=== PATIENT | male | born 1960 | race Caucasian/White ===

== ENCOUNTER 2019-06-06 16:21 | Inpatient (IN) ==
[2019-06-06] MEDS ORDERED: LABETALOL 20 MG/4 ML SYRINGE IV PRN (18:16)
[2019-06-06] MEDS ORDERED: GLUCAGON 1 MG VIAL IM PRN ×2 (18:17→18:24)
[2019-06-06] MEDS ORDERED: DEXTROSE 10% 250 ML BAG IV PRN (18:17)
[2019-06-06] MEDS ORDERED: ONDANSETRON 4 MG/2 ML VIAL IV PRN (18:17)
[2019-06-06] MEDS ORDERED: DOCUSATE SODIUM 100 MG CAPSULE PO PRN (18:17)
[2019-06-06] MEDS ORDERED: ACETAMINOPHEN 325 MG TABLET PO PRN (18:17)
[2019-06-06] MEDS ORDERED: DEXTROSE 50% 25 GM/50 ML VIAL IV PRN (18:24)
[2019-06-06 19:10] LABS: Basophils % 0.4 % (0.0-0.8); Eosinophils # 0.3 10*3/uL (0.0-0.87); Hematocrit 39.2 VOL% (42.0-52.0); Hemoglobin 13.9 GM/DL (14.0-18.0); Immature Granulocytes % 0.6 %; Immature Granulocytes Absolute 0.05 #; Lymphocytes # 1.5 10*3/uL (1.4-4.0); Lymphocytes % 16.6 % (21.2-54.2); Mean Corpuscular HGB Conc 35.5 GM/DL (32-36); Mean Corpuscular Volume 86.3 FL (87-102); Mean Platelet Volume 10.3 FL (9.6-12.0); Monocytes % 8.6 % (1.7-12.7); Neutrophils % 70.8 % (38.7-73.9); Platelet Count 320 T/CUMM (130-400); Red Blood Count 4.54 MC/CUMM (3.8-5.5); Red Cell Distribution Width 11.8 % (9.3-17.3)
[2019-06-06 19:34] LABS: Albumin 3.3 G/DL (3.4-5.0); Bilirubin,Total 0.5 MG/DL (0.2-1.0); Calcium 8.9 MG/DL (8.5-10.1); Osmolality,Calculated 281.3 MOS/KG (273-304); Total Protein 7.1 G/DL (6.4-8.3)
[2019-06-06] MEDS ORDERED: MAGNESIUM SULF RIDER 2 GM in PREMIX 1 EACH IV ONE (19:52)
[2019-06-06] MEDS ORDERED: INSULIN GLARGINE 100 UNIT/ML SUBCUT SCH ×2 (21:00)
[2019-06-06 21:05] LABS: Apearance,Urine CLEAR (Clear); Bilirubin,Urine Negative (Negative); Blood, Urine Negative (Negative); Glucose,Urine (UA) 50 mg/dL (Negative); Ketones,Urine 5 mg/dL (Negative); Mucus,Urine Moderate /LPF (Occasional); Nitrite,Urine Negative (Negative); Protein,Urine 100 MG/DL; RBC,Urine 3 /HPF (0-4); Squamous Epithelial Cell,Urine Occasional /HPF (0-10); Urine Color Amber (Yellow); Urine Specific Gravity 1.031 (1.001-1.035); WBC,Urine 1 /HPF (0-6)
[2019-06-06] MEDS: MAGNESIUM OXIDE 400 MG TABLET PO SCH (22:25)
[2019-06-06] MEDS: ENOXAPARIN 40 MG/0.4 ML SYRINGE SUBCUT SCH (22:25)
[2019-06-06] MEDS: OMEGA 3 ACID ETHYL ESTERS 1 GM CAPSULE PO SCH (22:26)
[2019-06-06] MEDS: METOPROLOL TARTRATE 100 MG TABLET PO SCH (22:26)
[2019-06-06] MEDS: INSULIN REGULAR 100 UNIT/ML SUBCUT SCH (22:26)
[2019-06-07 07:21] LABS: Basophils % 0.4 % (0.0-0.8); Eosinophils # 0.2 10*3/uL (0.0-0.87); Eosinophils % 3.3 % (0.00-10.9); Hematocrit 39.8 VOL% (42.0-52.0); Hemoglobin 13.6 GM/DL (14.0-18.0); Immature Granulocytes % 0.6 %; Immature Granulocytes Absolute 0.04 #; Lymphocytes # 0.8 10*3/uL (1.4-4.0); Lymphocytes % 12.1 % (21.2-54.2); Mean Corpuscular HGB Conc 34.2 GM/DL (32-36); Mean Corpuscular Volume 89.2 FL (87-102); Mean Platelet Volume 10.4 FL (9.6-12.0); Monocytes % 7.7 % (1.7-12.7); Neutrophils % 75.9 % (38.7-73.9); Platelet Count 326 T/CUMM (130-400); Red Blood Count 4.46 MC/CUMM (3.8-5.5); Red Cell Distribution Width 11.9 % (9.3-17.3); White Blood Count 6.9 T/CUMM (4-12)
[2019-06-07 07:53] LABS: Calcium 8.8 MG/DL (8.5-10.1); Osmolality,Calculated 285.3 MOS/KG (273-304); Thyroid Stimulating Hormone 0.345 uIU/ml (0.358-3.74)
[2019-06-07] MEDS ORDERED: VENLAFAXINE XR 37.5 MG CAPSULE PO SCH (09:00)
[2019-06-07] MEDS: OMEGA 3 ACID ETHYL ESTERS 1 GM CAPSULE PO SCH ×2 (09:31→21:40)
[2019-06-07] MEDS: INSULIN REGULAR 100 UNIT/ML SUBCUT SCH ×4 (09:31→21:41)
[2019-06-07] MEDS: CHOLECALCIFEROL 1,000 UNIT TABLET PO SCH (09:32)
[2019-06-07] MEDS: MAGNESIUM OXIDE 400 MG TABLET PO SCH (09:32)
[2019-06-07] MEDS: METOPROLOL TARTRATE 100 MG TABLET PO SCH (09:32)
[2019-06-07] MEDS: CETIRIZINE 10 MG TABLET PO SCH (16:34)
[2019-06-07] MEDS: ENOXAPARIN 40 MG/0.4 ML SYRINGE SUBCUT SCH (21:40)
[2019-06-07] MEDS: metFORMIN 500 MG TABLET PO SCH (21:40)
[2019-06-07] MEDS: INSULIN GLARGINE 100 UNIT/ML SUBCUT SCH (21:41)
[2019-06-07] MEDS: CHOLESTYRAMINE 4 GM PACK PO SCH (21:41)
[2019-06-08 04:48] LABS: Basophils % 0.4 % (0.0-0.8); Eosinophils # 0.3 10*3/uL (0.0-0.87); Eosinophils % 5.4 % (0.00-10.9); Hematocrit 37.6 VOL% (42.0-52.0); Immature Granulocytes % 0.4 %; Immature Granulocytes Absolute 0.02 #; Lymphocytes # 1.6 10*3/uL (1.4-4.0); Lymphocytes % 29.7 % (21.2-54.2); Mean Corpuscular HGB Conc 34.6 GM/DL (32-36); Mean Corpuscular Volume 86.4 FL (87-102); Mean Platelet Volume 10.2 FL (9.6-12.0); Monocytes % 13.6 % (1.7-12.7); Neutrophils % 50.5 % (38.7-73.9); Platelet Count 303 T/CUMM (130-400); Red Blood Count 4.35 MC/CUMM (3.8-5.5); Red Cell Distribution Width 11.6 % (9.3-17.3); White Blood Count 5.4 T/CUMM (4-12)
[2019-06-08 05:36] LABS: Folate 13.3 NG/ML (5.4-24.0); Vitamin B12 461 PG/ML (211-911)
[2019-06-08 05:45] LABS: Sedimentation Rate-Westergren 76 MM/HR (0-20)
[2019-06-08 06:20] LABS: Free T4 (Free Thyroxine) 1.07 NG/DL (0.76-1.46)
[2019-06-08] MEDS: INSULIN REGULAR 100 UNIT/ML SUBCUT SCH ×4 (07:55→21:09)
[2019-06-08] MEDS: OMEGA 3 ACID ETHYL ESTERS 1 GM CAPSULE PO SCH ×2 (09:10→21:07)
[2019-06-08] MEDS: metFORMIN 500 MG TABLET PO SCH ×2 (09:10→21:08)
[2019-06-08] MEDS: LISINOPRIL/HCTZ 10-12.5 MG TABLET PO SCH (09:10)
[2019-06-08] MEDS: CETIRIZINE 10 MG TABLET PO SCH (09:10)
[2019-06-08] MEDS: CHOLECALCIFEROL 1,000 UNIT TABLET PO SCH (09:10)
[2019-06-08] MEDS: CHOLESTYRAMINE 4 GM PACK PO SCH ×2 (09:11→21:07)
[2019-06-08] MEDS: METOPROLOL SUCCINATE XL 100 MG TABLET PO SCH (09:11)
[2019-06-08 10:02] LABS: Hemoglobin A1 (Alkaline) 97.3 % (96.5-98.5); Hemoglobin A2 (Alkaline) 2.7 % (1.5-3.5)
[2019-06-08] MEDS: INSULIN GLARGINE 100 UNIT/ML SUBCUT SCH (21:08)
[2019-06-08] MEDS: ENOXAPARIN 40 MG/0.4 ML SYRINGE SUBCUT SCH (21:08)
[2019-06-08] MEDS: ATORVASTATIN 40 MG TABLET PO SCH (21:08)
[2019-06-09 05:26] LABS: Calcium 8.8 MG/DL (8.5-10.1); Osmolality,Calculated 282.3 MOS/KG (273-304)
[2019-06-09] MEDS: INSULIN REGULAR 100 UNIT/ML SUBCUT SCH ×4 (08:21→21:11)
[2019-06-09] MEDS: CHOLECALCIFEROL 1,000 UNIT TABLET PO SCH (08:37)
[2019-06-09] MEDS: CETIRIZINE 10 MG TABLET PO SCH (08:38)
[2019-06-09] MEDS: METOPROLOL SUCCINATE XL 100 MG TABLET PO SCH (08:38)
[2019-06-09] MEDS: LISINOPRIL/HCTZ 10-12.5 MG TABLET PO SCH (08:38)
[2019-06-09] MEDS: OMEGA 3 ACID ETHYL ESTERS 1 GM CAPSULE PO SCH ×2 (08:38→21:11)
[2019-06-09] MEDS: metFORMIN 500 MG TABLET PO SCH ×2 (08:39→21:11)
[2019-06-09] MEDS: CHOLESTYRAMINE 4 GM PACK PO SCH ×2 (08:40→21:16)
[2019-06-09] MEDS: INSULIN GLARGINE 100 UNIT/ML SUBCUT SCH (21:11)
[2019-06-09] MEDS: ATORVASTATIN 40 MG TABLET PO SCH (21:11)
[2019-06-09] MEDS: ENOXAPARIN 40 MG/0.4 ML SYRINGE SUBCUT SCH (21:11)
[2019-06-10] MEDS: METOPROLOL SUCCINATE XL 100 MG TABLET PO SCH (08:55)
[2019-06-10] MEDS: LISINOPRIL/HCTZ 10-12.5 MG TABLET PO SCH (08:55)
[2019-06-10] MEDS: CETIRIZINE 10 MG TABLET PO SCH (08:55)
[2019-06-10] MEDS: OMEGA 3 ACID ETHYL ESTERS 1 GM CAPSULE PO SCH (08:55)
[2019-06-10] MEDS: CHOLESTYRAMINE 4 GM PACK PO SCH (08:56)
[2019-06-10] MEDS: CHOLECALCIFEROL 1,000 UNIT TABLET PO SCH (08:56)
[2019-06-10] MEDS: metFORMIN 500 MG TABLET PO SCH (08:56)
[2019-06-10] MEDS: INSULIN REGULAR 100 UNIT/ML SUBCUT SCH ×3 (08:56→16:39)
[2019-06-10 12:14] VITALS: BP 154/90
== END 2019-06-10 16:54 | disposition home or self-care (01) | DRG 74 ==
LOC: N.5E → SUATTDRO 16:49
PROVIDERS: ADMIT Internal Medicine